=== PATIENT | male | born 1980 | race Caucasian/White ===

== ENCOUNTER 2018-05-15 20:40 | Emergency (ER) | payer OTHER ==
[2018-05-15 21:03] VITALS: BP 119/78; PULSE 80; TEMP 98.2; BMI 25.0
--- NOTE | 2018-05-15 21:52 | PDOC ---
History of Present Illness - General Chief Complaint: Pain Stated Complaint: ABDOMINAL PAIN Time Seen by Provider: 05/15/18 21:48 History Source: Patient, Family (Cousin present at bedside), Pt declined Can Tester Exam Limitations: Language Barrier - History of Present Illness Initial Comments: HPI: 37 y/o male presenting to [facility] ER complaining of left flank and lower left flank pain since yesterday evening. Pt reports the pain has migrated more anteriorly since onset and now radiates into his groin and testicles. Endorses dysuria without hematuria or discharge. Denies vomiting, diarrhea, fevers, or chills. Able to tolerate PO. Pt has a h/o of nephrolithiasis, last episode December 2017. Pt was [place] facility [place] the country and given an unknown medication. Denies h/o of STDs. Denies travel outside of the country in the last two months. Pt is Maltese [place]ian speaking only. Declined telephone biometrics analyst. Requested cousin to translate. PCP: None Urologist: None Medical Hx: - Nephrolethaisis Surgical Hx: - S/p appendectomy (2016) Past History - Past Medical History Allergies/Adverse Reactions: Allergies Allergy/AdvReac Type Severity Reaction Status Date / Time No Known Allergies Allergy Verified 05/15/18 20:59 Home Medications: Ambulatory Orders Tramadol HCl 50 mg PO Q8H PRN 4 Days #12 tablet MDD 3 05/16/18 COPD: No Other medical history: Pt denies - Surgical History Appendectomy: Yes - Suicide/Smoking/Psychosocial Hx Smoking History: Never smoked Have you smoked in the past 12 months: No Information on smoking cessation initiated: No Hx Alcohol Use: No Drug/Substance Use Hx: No Review of Systems - Review of Systems Able to Perform ROS?: Yes Comments:: In addition to that documented in the HPI above, the additional ROS was obtained : Constitutional: Denies fevers or chills ENMT: Denies sore throat CV: Denies chest pain Resp: Denies SOB GI: Denies vomiting or diarrhea : Endorses dysuria. Denies hematuria, urinary frequency, or penile discharge *Physical Exam - Vital Signs Last Vital Signs Temp Pulse Resp BP Pulse Ox 98.2 F 80 18 119/78 98 05/15/18 21:01 05/15/18 21:01 05/15/18 21:01 05/15/18 21:01 05/15/18 21:01 - Physical Exam Comments: Constitutional: Well-developed, well-nourished, nontoxic male in no acute distress but obvious mild discomfort. Found sitting upright on edge of hospital hallway bed. Alert and oriented x4. Speech was non-labored, non-pressured. Head: Normocephalic. No obvious external signs of trauma. Eyes: Sclerae white. Ears: Hearing grossly intact. Nose: No nasal discharge. Neck: Supple, trachea is midline. Cardiovascular / Chest: Regular rate and regular rhythm. No murmur, rubs, clicks, or gallops. Peripheral pulses: radial pulses full. Respiratory: Breathing unlabored. Equal chest rise and fall. Clear to auscultation bilaterally. No stridor, no wheezing, no rhonchi. Gastrointestinal: abdomen is tender in left lower quadrant/pelvis with grimace but no rebound or guarding. Globally abdomen is soft and nondistended. No overlying skin lesions or obvious signs of trauma. Post surgical scar to lower right quadrant. Neuro: Alert and oriented. Moving all four extremities spontaneously. Gait normal. Observed walking unassisted through the department without difficulty. Skin: Warm, dry, and intact. : Mild left CVA tenderness. Psych: Affect: appropriate. Mood: normal. MALE GENITALIA: Genital exam revealed normally developed male genitalia. Circumcised penis. Mild left testicular tenderness. No scrotal mass. Normal testicular lie. No hernias. No genital lesions or urethral discharge. RN chaperoned exam. Moderate Sedation - Procedure Monitoring Vital Signs: Procedure Monitoring Vital Signs Temperature 98.2 F 05/15/18 21:01 Pulse Rate 80 05/15/18 21:01 Respiratory Rate 18 05/15/18 21:01 Blood Pressure 119/78 05/15/18 21:01 O2 Sat by Pulse Oximetry (%) 98 05/15/18 21:01 ED Treatment Course - LABORATORY CBC & Chemistry Diagram: 05/15/18 22:49 05/15/18 22:49 - ADDITIONAL ORDERS Additional order review: 05/15/18 05/15/18 22:49 22:10 Sodium 137 Potassium 4.2 Chloride 103 Carbon Dioxide 30 Anion Gap 5 L BUN 15 Creatinine 1.0 Creat Clearance w eGFR > 60 Random Glucose 92 Calcium 9.0 Urine Color Yellow Urine Appearance Clear Urine pH 5.0 Ur Specific [place] 1.020 Urine Protein Negative Urine Glucose (UA) Negative Urine Ketones Negative Urine Blood 1+ H Urine Nitrite Negative Urine Bilirubin Negative Urine Urobilinogen 2.0 Ur Leukocyte Esterase Negative Urine WBC (Auto) <1 Urine RBC (Auto) 1 Hyaline Casts 1 Urine Mucus Rare 05/15/18 22:10 Urine Culture - Final Urine - Urine Clean Catch NO GROWTH OBTAINED 05/15/18 22:49 RBC 5.33 MCV 88.3 MCHC 34.1 RDW 13.2 MPV 9.7 Neutrophils % 63.1 Lymphocytes % 23.0 Monocytes % 9.5 Eosinophils % 3.8 Basophils % 0.6 - RADIOLOGY Radiology Studies Ordered: Category Date Time Status SPIRAL- RENAL-STONE CT [CT] Stat CT Scan 05/15/18 22:49 Completed SCROTUM AND CONTENTS US [US] Stat Ultrasound 05/16/18 00:44 Completed - Medications Given in the ED: ED Medications Discontinued Medications Generic Name Dose Route Start Last Admin Trade Name Freq PRN Reason Stop Dose Admin Ketorolac Tromethamine 30 mg 05/15/18 22:19 05/15/18 22:57 Toradol Injection - IM 05/15/18 22:20 Not Given ONCE ONE Ketorolac Tromethamine 30 mg 05/15/18 22:50 05/15/18 22:57 Toradol Injection - IVPUSH 05/15/18 22:51 30 mg ONCE ONE Administration Lactated Ringer's 1,000 ml 05/15/18 22:50 05/15/18 23:02 Lactated Ringers Solution IV 05/15/18 22:51 1,000 ml ONCE ONE Administration Medical Decision Making - Medical Decision Making *Reviewed vital signs, nursing notes, and prior visit documentation (if available). 37 y/o complaining of left flank and lower left abdomen x2 days. H/o of nephrolithiasis. Afebrile. Vitals unremarkable for hypotension or tachycardia. Physical exam as described above. Suspect nephrolithiasis versus cystitis versus pyelonephritis versus MSK pain. Low suspicion for testicular torsion versus epididymitis. Will obtain CBC, BMP, UA, urine culture, and spiral CT to further evaluate. Ordered toradol and IVFB for symptom relief. UA remarkable for 1+ blood but no pyuria, leukocyte esterase, or nitrites. Low suspicion for cystitis, pyelonephritis, or epididymitis. Spiral CT scan revealed Pt reassessed and continues to complain of pain. Now stating the pain is worse in his left scrotum. Low suspicion for torsion given findings of physical exam but will evaluate further with formal ultrasound. U/S unremarkable for signs of torsion or acute pathology. Pt discharged by resident Dr. Trent. *DC/Admit/Observation/Transfer Diagnosis at time of Disposition: Left flank pain - Discharge Dispostion Disposition: HOME Condition at time of disposition: Good - Prescriptions Prescriptions: Tramadol HCl 50 mg PO Q8H PRN 4 Days #12 tablet MDD 3 PRN Reason: Pain - Referrals Referrals: Blaine Carroll MD., [Staff Physician] - [facility] [place] [facility] at [place] [Provider Group] - Patient Instructions Printed Discharge Instructions: DI for Flank Pain Additional Instructions: You were seen in the ER today for flank pain. The results of your labs and imaging today were normal. Please follow-up with your primary care doctor and urology within 1-2 days to discuss your visit and make sure your symptoms have improved. Please return to the ER if you have any worsening pain, development of fevers or chills, loss of consciousness, inability to tolerate food or fluids , or any other concerns. - Post Discharge Activity Forms/Work/School Notes: Back to Work
[2018-05-15 22:18] LABS: URINE APPEARANCE CLEAR; URINE BILIRUBIN NEGATIVE (<2.0 mg/dL); URINE COLOR YELLOW; URINE GLUCOSE (UA) NEGATIVE (NEGATIVE); URINE KETONE NEGATIVE (NEGATIVE); URINE LEUK ESTERASE NEGATIVE (NEGATIVE); URINE NITRITE NEGATIVE (NEGATIVE); URINE PROTEIN NEGATIVE (NEGATIVE)
[2018-05-15] MEDS ORDERED: KETOROLAC TROMETHAMINE 30 MG/1 ML VIAL IM ONE (22:19)
[2018-05-15 22:20] LABS: URINE HYALINE CAST 1 /lpf; URINE MUCUS RARE
[2018-05-15] MEDS ORDERED: KETOROLAC TROMETHAMINE 30 MG/1 ML VIAL ONE (22:38)
[2018-05-15] MEDS ORDERED: KETOROLAC TROMETHAMINE 30 MG/1 ML VIAL IVPUSH ONE (22:50)
[2018-05-15] MEDS ORDERED: LACTATED RINGERS SOLUTION 1000 ML INFUS.BAG IV ONE (22:50)
--- NOTE | 2018-05-15 22:50 | PDOC ---
Attending Attestation - HPI HPI: 05/15/18 22:50 The patient is a 37 year old male with a significant PMH of kidney stones who presents to the emergency department with left flank pain since yesterday night. Patient states the left flank pain radiates to the left lower quadrant and left groin. Patient admits to dysuria but denies any hematuria. Patient states he had kidney stones back in October. The patient denies chest pain, shortness of breath, headache and dizziness. Denies fever, chills, nausea, vomit, diarrhea and constipation. Denies frequency, urgency and hematuria. Allergies: NKA Past surgical history: appendectomy Social history: Current cigarette smoker. No reported alcohol or drug use. <Mariama Haji - Last Filed: 05/15/18 22:50> - Resident Resident Name: Claudio Hall - ED Attending Attestation I have performed the following: I have examined & evaluated the patient, The case was reviewed & discussed with the resident, I agree w/resident's findings & plan - Physicial Exam PE: 05/15/18 22:55 Agree with resident exam - Medical Decision Making 05/15/18 22:55 37-year-old male with flank pain and history of kidney stones Labs, UA and CT scan for further evaluation Toradol 30 mg given IV as well as normal saline 1 L IV fluid bolus Plan for discharge with outpatient urology follow-up pending CT scan results <Halle Michaels - Last Filed: 05/15/18 22:56>
[2018-05-15 23:04] LABS: BASO % 0.6 % (0-2.0); EOS % 3.8 % (0-4.5); MCH 30.1 pg (25.7-33.7); MCHC 34.1 g/dl (32.0-35.9); MEAN CELL VOLUME 88.3 fl (80-96); MEAN PLT VOLUME 9.7 fl (7.5-11.1); MONO % 9.5 % (3.8-10.2); NEUT % 63.1 % (42.8-82.8); PLATELET COUNT 226 K/MM3 (134-434); RBC 5.33 M/mm3 (4.00-5.60); RDW 13.2 % (11.9-15.9)
[2018-05-16 00:13] LABS: ANION GAP 5 MMOL/L (8-16); BLOOD UREA NITROGEN 15 mg/dL (7-18); CHLORIDE 103 mmol/L (98-107); CO2 30 mmol/L (21-32); GLUCOSE,RANDOM 92 mg/dL (74-106); POTASSIUM 4.2 mmol/L (3.5-5.1); SODIUM 137 mmol/L (136-145)
--- NOTE | 2018-05-16 03:08 | PDOC ---
*Physical Exam - Vital Signs Last Vital Signs Temp Pulse Resp BP Pulse Ox 98.2 F 80 18 119/78 98 05/15/18 21:01 05/15/18 21:01 05/15/18 21:01 05/15/18 21:01 05/15/18 21:01 ED Treatment Course - LABORATORY CBC & Chemistry Diagram: 05/15/18 22:49 05/15/18 22:49 - ADDITIONAL ORDERS Additional order review: Laboratory Results 05/15/18 05/15/18 22:49 22:10 Sodium 137 Potassium 4.2 Chloride 103 Carbon Dioxide 30 Anion Gap 5 L BUN 15 Creatinine 1.0 Creat Clearance w eGFR > 60 Random Glucose 92 Calcium 9.0 Urine Color Yellow Urine Appearance Clear Urine pH 5.0 Ur Specific [place] 1.020 Urine Protein Negative Urine Glucose (UA) Negative Urine Ketones Negative Urine Blood 1+ H Urine Nitrite Negative Urine Bilirubin Negative Urine Urobilinogen 2.0 Ur Leukocyte Esterase Negative Urine WBC (Auto) <1 Urine RBC (Auto) 1 Hyaline Casts 1 Urine Mucus Rare 05/15/18 22:49 RBC 5.33 MCV 88.3 MCHC 34.1 RDW 13.2 MPV 9.7 Neutrophils % 63.1 Lymphocytes % 23.0 Monocytes % 9.5 Eosinophils % 3.8 Basophils % 0.6 - Medications Given in the ED: ED Medications Discontinued Medications Generic Name Dose Route Start Last Admin Trade Name Freq PRN Reason Stop Dose Admin Ketorolac Tromethamine 30 mg 05/15/18 22:19 05/15/18 22:57 Toradol Injection - IM 05/15/18 22:20 Not Given ONCE ONE Ketorolac Tromethamine 30 mg 05/15/18 22:50 05/15/18 22:57 Toradol Injection - IVPUSH 05/15/18 22:51 30 mg ONCE ONE Administration Lactated Ringer's 1,000 ml 05/15/18 22:50 05/15/18 23:02 Lactated Ringers Solution IV 05/15/18 22:51 1,000 ml ONCE ONE Administration Medical Decision Making - Medical Decision Making Right side: Right testicle is normal and homogeneous with out lesion. There is positive Doppler blood flow to the right testicle. 2.9 mm right epididymal head cyst noted. No right hydroceles. Left side: Left testicle is normal and homogeneous. No testicular lesions are identified. There is positive Doppler blood flow to the left testicle. Left epididymal cyst. No left hydrocele. 05/16/18 03:07 Pt safe to discharge to home with follow-up with PCP and Urology. Copy of US provided for appointment. 05/16/18 03:07 *DC/Admit/Observation/Transfer Diagnosis at time of Disposition: Left flank pain - Discharge Dispostion Disposition: HOME Condition at time of disposition: Good Decision to Admit order: No - Prescriptions Prescriptions: Tramadol HCl 50 mg PO Q8H PRN 4 Days #12 tablet MDD 3 PRN Reason: Pain - Referrals Referrals: [facility] [place] [facility] at [place] [Provider Group] Blaine Carroll MD., [Staff Physician] - - Patient Instructions Printed Discharge Instructions: DI for Flank Pain Additional Instructions: You were seen in the ER today for flank pain. The results of your labs and imaging today were normal. Please follow-up with your primary care doctor and urology within 1-2 days to discuss your visit and make sure your symptoms have improved. Please return to the ER if you have any worsening pain, development of fevers or chills, loss of consciousness, inability to tolerate food or fluids , or any other concerns. - Post Discharge Activity
== END 2018-05-16 03:21 | disposition home or self-care (01) ==
LOC: JER 20:40
PROC: 3E0333Z Introduction of Anti-inflammatory into Peripheral Vein, Percutaneous Approach (ICD-10-PCS; principal; 2018-05-15)
DX: R10.32 Left lower quadrant pain (principal); N50.3 Cyst of epididymis; Z87.442 Personal history of urinary calculi
CPT/HCPCS: 36415; 74176-TC; 76870-TC; 80048; 81003; 81015; 85025; 87086; 96374; 99281-25